=== PATIENT | female | born 1930 | race Caucasian/White ===

== ENCOUNTER 2016-08-05 16:23 | Outpatient (CLI) | payer MEDICARE, BC, OTHER ==
[2016-08-05 16:40] LABS: INR-International Normal Ratio 1.5
== END 2016-08-05 16:24 | disposition home or self-care (01) ==
LOC: HPCALD 16:23
PROVIDERS: ATTEND Family Medicine
DX: I48.2 Chronic atrial fibrillation (principal)
CPT/HCPCS: 36415; 85610

== ENCOUNTER 2016-08-25 10:22 | Outpatient (CLI) | payer MEDICARE, BC, OTHER ==
[2016-08-25 11:22] LABS: INR-International Normal Ratio 2.1; Prothrombin Time 24.3 SEC (12.0-14.7)
== END 2016-08-25 10:23 | disposition home or self-care (01) ==
LOC: HPCALD 10:22
PROVIDERS: ATTEND Family Medicine
DX: I48.2 Chronic atrial fibrillation (principal)
CPT/HCPCS: 36415; 85610

== ENCOUNTER 2016-09-26 10:38 | Outpatient (CLI) | payer MEDICARE, BC, OTHER ==
[2016-09-26 11:22] LABS: INR-International Normal Ratio 1.7
== END 2016-09-26 10:39 | disposition home or self-care (01) ==
LOC: HPCALD 10:38
PROVIDERS: ATTEND Family Medicine
DX: I48.2 Chronic atrial fibrillation (principal)
CPT/HCPCS: 36415; 85610

== ENCOUNTER 2016-10-21 13:13 | Outpatient (CLI) | payer MEDICARE, BC, OTHER ==
[2016-10-21 13:34] LABS: INR-International Normal Ratio 2.5; Prothrombin Time 28.4 SEC (12.0-14.7)
== END 2016-10-21 13:14 | disposition home or self-care (01) ==
LOC: HPCALD 13:13
PROVIDERS: ATTEND Family Medicine
DX: Z51.81 Encounter for therapeutic drug level monitoring (principal); I48.2 Chronic atrial fibrillation; Z79.01 Long term (current) use of anticoagulants
CPT/HCPCS: 36415; 85610

== ENCOUNTER 2017-07-27 17:20 | Emergency (ER) | payer MEDICARE, BC ==
[2017-07-27 18:04] LABS: #Basophils 0.1 thou/uL (0.0-0.2); #Eosinphils 0.1 thou/uL (0.0-0.7); #Lymphocytes 1.4 thou/uL (1.20-3.40); #Monocytes 0.6 thou/uL (0.11-0.59); #Neutrophils 4.3 thou/uL (1.40-6.50); %Basophils 0.8 % (0.0-1.0); %Eosinophils 1.3 % (0.0-10.0); %Lymphocytes 21.4 % (21.0-51.0); %Monocytes 8.6 % (0.0-10.0); %Neutrophils 67.9 % (42.0-75.0); Hemoglobin 12.3 g/dL (12.0-16.0); Mean Corpuscular HGB CONC 34.9 g/dL (32.0-36.0); Mean Corpuscular Volume 80.4 fL (78.0-98.0); Mean Platelet Volume 5.8 fL (7.4-10.4); Platelet Count 226 thou/uL (130-400); RBC Distribution Width 12.9 % (11.5-14.5); Red Blood Cell (RBC) Count 4.38 mill/uL (4.20-5.40); White Blood Cell (WBC) Count 6.3 thou/uL (4.8-10.8)
[2017-07-27 18:17] LABS: ALT (SGPT) 12 U/L (8-55); AST (SGOT) 21 U/L (5-34); Albumin 4.6 g/dL (3.4-4.8); Alkaline Phosphatase 88 U/L (40-150); Anion Gap 15 mmol/L (10-20); BUN (Urea Nitrogen) 9 mg/dL (9.8-20.1); Bilirubin, Total 0.8 mg/dL (0.2-1.2); Calc. Creatinine Clearance 0 mL/min (70-130); Calcium 9.7 mg/dL (7.8-10.44); Carbon Dioxide 26 mmol/L (23-31); Chloride 104 mmol/L (98-107); Estimated GFR-MDRD 76; Globulin 2.9 g/dL (2.4-3.5); Glucose 100 mg/dL (83-110); Potassium 4.3 mmol/L (3.5-5.1); Protein, Total 7.5 g/dL (6.0-8.3); Sodium 141 mmol/L (136-145); Uric Acid 4.3 mg/dL (2.6-6.0)
[2017-07-27] MEDS ORDERED: Ketorolac Tromethamine 30 MG/ML VIAL ONE (18:48)
[2017-07-27] MEDS ORDERED: Clindamycin 150 MG CAP ONE (18:49)
--- NOTE | 2017-07-27 20:02 | RAD ---
LEFT FOOT THREE VIEWS 07/27/17 No acute fracture was seen. Periosteal reaction is present, particularly along the fourth metatarsal. This is more likely old and/or age-related than anything acute. Mild hallux valgus is present with b union formation along the medial first metatarsal head. There is some mild joint space narrowing of t he first MTP joint. A small calcaneal spur was present. Some arterial calcifications are present. IMPRESSION: Chronic changes, but no acute bony findings. POS: HOME
== END 2017-07-27 19:10 | disposition home or self-care (01) ==
LOC: BURERS 17:20
DX: L03.116 Cellulitis of left lower limb (principal); I48.91 Unspecified atrial fibrillation; Z79.899 Other long term (current) drug therapy
CPT/HCPCS: 36415; 80053; 84550; 85025; 85652; 96374; J1885